=== PATIENT | male | born 1940 | race Caucasian/White ===

== ENCOUNTER → 2016-12-01 | Outpatient (CLI) | payer MEDICARE, MEDICAID ==
[~2016-12-01] VITALS: Ht 170.2 cm; Wt 59.1 kg
[~2016-12-01] MED LIST: ALMACONE 360 M360 ML PO; ARICEPT10 MG PO; ASPIRIN E.C. 8181 MG PO; ATIVAN 0.50.5 MG/TAB PO; BUSPAR5 MG PO; CLARITIN 1010 MG/TAB PO; COZAAR100 MG PO; GERI-TUSSIN DM473 ML PO; MILK OF MA400 MG/52 PO; PRAVACHOL10 MG PO; RT ALBUTER2.5 MG/0.5 IH; TYLENOL 500MG500 MG PO; ULTRAM 50MG TAB50 MG PO; VENTOLIN0.09 MG IH; VITAMIN D 1001000 IU PO; ZOLOFT 100MG100 MG PO
[2016-12-01 11:06] VITALS: PULSE 83
[2016-12-01 12:26] VITALS: BP 170/99; PULSE 72
== END ==
LOC: COL.RAD 10:40
DX: E04.1 Nontoxic single thyroid nodule (principal)

== ENCOUNTER → 2017-01-19 | Outpatient (CLI) | payer MEDICARE, MEDICAID | LOC: COL.RAD 08:56 | DX: M89.9 Disorder of bone, unspecified (principal) | CPT/HCPCS: A9503 ==